=== PATIENT | male | born 1985 | race Caucasian/White ===

== ENCOUNTER 2021-04-09 01:56 | Inpatient (IN) | payer OTHER ==
[~2021-04-09] VITALS: Ht 175.3 cm; Wt 94.5 kg
[2021-04-09] VITALS (12 sets, daily range): BP systolic 90–120; BP diastolic 40–68
[2021-04-09] MEDS ORDERED: PIP/TAZO PER PHARMACY MC PRN (05:30)
[2021-04-09] MEDS: IV NORMAL SALINE 1000ML BAG 1,000 ML IV SCH ×2 (05:30→18:02)
[2021-04-09] MEDS ORDERED: fentaNYL PF VIAL 100 MCG/2 ML VIAL IVP PRN ×3 (05:30→08:30)
[2021-04-09] MEDS ORDERED: ONDANSETRON PF 4 MG/2 ML VIAL. IVP PRN (05:30)
[2021-04-09] MEDS: PIPERACILLIN/TAZOBACTAM 3.375 GM in IV NORMAL SALINE 50ML 50 ML IV SCH ×3 (06:00→18:02)
[2021-04-09] MEDS ORDERED: ACETAMINOPHEN 650 MG SUPP.RECT. PR PRN (08:15)
[2021-04-09] MEDS ORDERED: IV RINGERS,LACTATED 1000ML 1,000 ML IV SCH (08:30)
[2021-04-09] MEDS ORDERED: MORPHINE SULFATE 2 MG/ML VIAL. IVP PRN (08:30)
--- NOTE | 2021-04-09 10:48 | NUR ---
SW following. Discussed with RN, pt from home, room air, NPO. Pt having surgery today. RN advised no SW needs at this time. SW will continue to follow.
[2021-04-09] MEDS ORDERED: BUPIVACAINE-EPI 0.5%-1:200000 MPF 30 ML VIAL. ONE (12:35)
--- NOTE | 2021-04-09 13:05 | PDOC2 ---
CONSULT Date of Consult Date of Consult DATE: 04/09/21 TIME: 13:01 Reason for Consult Reason for Consult: appendicitis Referring Physician Referring Physician: Dr. Crow Identification/Chief Complaint Chief Complaint RLQ abd pain Source Source: Chart review, Patient History of Present Illness Reason for Visit: 36 yo M developed RLQ abd pain, beginning yesterday morning. No previous episodes. Associated N/V/F/C. Some improvement since admission. Pt seen in preop. Past Medical History Cardiovascular: No pertinent hx Past Surgical History Past Surgical History: No pertinent history Family History Family History: No Significant Social History No ALCOHOL: social Current Medications Current Medications Current Medications Sodium Chloride 1,000 ml @ 100 mls/hr Q10H IV Last administered on 04/09/21at 05:30; Start 04/09/21 at 05:30 Fentanyl Citrate (Fentanyl 2ml Vial) 25 mcg PRN Q3HRS PRN IVP SEVERE PAIN 7-10 Last administered on 04/09/21at 08:12; Start 04/09/21 at 05:30 Ondansetron HCl (Zofran) 4 mg PRN Q4HRS PRN IVP NAUSEA/VOMITING 1ST CHOICE Last administered on 04/09/21at 08:25; Start 04/09/21 at 05:30 Piperacillin Sod/ Tazobactam Sod (Zosyn Per Pharmacy) 1 each PRN DAILY PRN MC SEE COMMENTS; Start 04/09/21 at 05:30 Piperacillin Sod/ Tazobactam Sod 3.375 gm/Sodium Chloride 50 ml @ 100 mls/hr Q6HRS IV Last administered on 04/09/21at 11:55; Start 04/09/21 at 06:00 Acetaminophen (Tylenol Supp) 650 mg PRN Q4HRS PRN CA MILD PAIN / TEMP > 100.3'F Last administered on 04/09/21at 08:26; Start 04/09/21 at 08:15 Fentanyl Citrate (Fentanyl 2ml Vial) 25 mcg PRN Q5MIN PRN IVP MILD PAIN 1-3; Start 04/09/21 at 08:30; Stop 04/10/21 at 08:29 Fentanyl Citrate (Fentanyl 2ml Vial) 50 mcg PRN Q5MIN PRN IVP MODERATE PAIN 4- 6; Start 04/09/21 at 08:30; Stop 04/10/21 at 08:29 Morphine Sulfate (Morphine Sulfate) 1 mg PRN Q10MIN PRN IVP SEVERE PAIN 7-10; Start 04/09/21 at 08:30; Stop 04/10/21 at 08:29 Ringer's Solution 1,000 ml @ 30 mls/hr Q24H IV Last administered on 04/09/21at 12:37; Start 04/09/21 at 08:30; Stop 04/09/21 at 20:29 Hydromorphone HCl (Dilaudid) 0.5 mg PRN Q10MIN PRN IVP SEVERE PAIN 7-10, 2nd CHOICE; Start 04/09/21 at 08:30; Stop 04/10/21 at 08:29 Prochlorperazine Edisylate (Compazine) 5 mg PACU PRN PRN IVP NAUSEA, MRX1; Start 04/09/21 at 08:30; Stop 04/10/21 at 08:29 Bupivacaine HCl/ Epinephrine Bitart (Sensorcain-Epi 0.5%-1:[id number] Mpf) 30 ml STK-MED ONCE .ROUTE ; Start 04/09/21 at 12:35; Stop 04/09/21 at 12:35; Status DC Allergies Allergies: Coded Allergies: No Known Allergies (Verified Allergy, Unknown, 04/09/21) No Known Food Allergies (Verified Allergy, Unknown, 04/09/21) ROS General: YES: Chills Gastrointestinal: Yes Nausea, Yes Vomiting, Yes Abdominal Pain Physical Exam General: Alert, Oriented X3, Cooperative, No acute distress HEENT: Atraumatic Lungs: Normal air movement Abdomen: Soft, Other (TTP RLQ) Extremities: No clubbing, No cyanosis Skin: No rashes, No breakdown Neuro: Normal speech, Sensation intact Psych/Mental Status: Mental status NL, Mood NL Vitals VITALS Vital Signs Date Time Temp Pulse Resp B/P (MAP) Pulse Ox O2 Delivery O2 Flow Rate FiO2 04/09/21 12:33 100.5 60 15 112/55 95 Room Air 100.[address] [facility] labs with elevated WBC Images Images CT at [facility] c/w appendicitis Assessment/Plan Assessment/Plan appendicitis TO OR for laparoscopic versus open appendectomy. R/R/B/A d/w pt and pt's SO. Risks, including, but not limited to: bleeding, infection, damage to surrounding structures, risk of anesthesia, risk of open. They appear to understand, their questions are answered and they elect to proceed. Thanks for consult! MACIEJ GARCIA MD Apr 09, 2021 13:04
[2021-04-09] MEDS ORDERED: NEOSTIGMINE METHYLSULFATE 5 MG/5 ML SYRINGE. ONE (13:48)
[2021-04-09] MEDS ORDERED: GLYCOPYRROLATE 1 MG/5 ML VIAL. ONE (13:48)
[2021-04-09] MEDS ORDERED: SEVOFLURANE 61 TO 120 MINUTES. IH ONE (13:49)
--- NOTE | 2021-04-09 13:58 | PDOC4 ---
OPERATIVE NOTE Date: Date: Apr 09, 2021 Pre-Op Diagnosis: Appendicitis Post-Op Diagnosis: perforated appendicitis Procedure Performed: laparoscopic appendectomy Surgeon: Darren Garcia Anesthesia Type: GETA plus local Blood Loss: 50 Specimans Obtained: appendix Findings: perforated appendicitis with gangrenous tip, contained, no other pathology noted, wound class is dirty, 4. Complications: none Operative Note: After obtaining informed consent, patient was taken to OR, induced under GETA and prepped in the usual fashion. 5 mm ports placed LLQ and suprapubic, 12 port placed supraumbilical, all under laparoscopic guidance. Abdominal cavity was explored and noted as above. Appendix was bluntly dissected off abdominal wall, releasing feculent, purulent material. Defect created in mesoappendix. General load SAMANTHA taken across base of appendix. Vascular load taken across mesoappendix. Additional hemostasis obtained with clips on staple lines. Appendix placed in bag, delivered and sent to pathology. Copious irrigation with multiple bags of saline. No evidence of bleeding or other pathology noted. Ports removed without bleeding. Fascia repaired with 0 vicryl. Skin repaired with 4 0 monocryl. Dressing placed. Patient tolerated procedure well and sent to PACU in stable condition. All counts correct. MACIEJ GARCIA MD Apr 09, 2021 13:58
[2021-04-09] MEDS ORDERED: 0.9 % SODIUM CHLORIDE 10 ML DISP.SYRIN. IV PRN (14:00)
[2021-04-09] MEDS ORDERED: IV NORMAL SALINE 1000ML BAG 1,000 ML IV SCH (14:00)
[2021-04-09] MEDS: IV RINGERS,LACTATED 1000ML 1,000 ML IV SCH (14:00)
[2021-04-09] MEDS ORDERED: NALOXONE 0.4 MG/ML VIAL. IV PRN (14:00)
[2021-04-09] MEDS ORDERED: fentaNYL PF VIAL 100 MCG/2 ML VIAL ONE (14:02)
[2021-04-09] MEDS ORDERED: HYDROmorphone 2 MG/ML VIAL ONE (14:12)
[2021-04-09] MEDS ORDERED: PROCHLORPERAZINE 10 MG/2 ML VIAL. ONE (14:12)
[2021-04-09] MEDS: HYDROmorphone 2 MG/ML VIAL IVP PRN ×4 (14:15→14:46)
[2021-04-09] MEDS: PROCHLORPERAZINE 10 MG/2 ML VIAL. IVP PRN ×2 (14:15→14:32)
[2021-04-09] MEDS: HYDROcodone/APAP 5/325MG 1 TAB TABLET PO PRN (21:53)
[2021-04-10] MEDS: PIPERACILLIN/TAZOBACTAM 3.375 GM in IV NORMAL SALINE 50ML 50 ML IV SCH ×4 (00:30→18:03)
[2021-04-10] MEDS: IV NORMAL SALINE 1000ML BAG 1,000 ML IV SCH ×2 (00:54→14:01)
[2021-04-10 03:00] VITALS: BP 112/51
[2021-04-10] MEDS: HYDROcodone/APAP 5/325MG 1 TAB TABLET PO PRN ×3 (03:25→19:30)
[2021-04-10 05:47] LABS: BASO % 0 % (0-3); EOS % 0 % (0-3); HEMATOCRIT 37.2 % (39.0-53.0); HEMOGLOBIN 12.8 g/dL (13.0-17.5); LYMPH % 8 % (24-48); MEAN CORPUSCULAR HEMOGLOBIN 32 pg (25-35); MEAN CORPUSCULAR HGB CONC 34 g/dL (31-37); MEAN CORPUSCULAR VOLUME 92 fL (79-100); MONO # 1.1 x10^3/uL (0.0-1.1); MONO % 9 % (0-9); NEUT # 9.9 x10^3/uL (1.8-7.7); NEUT % 82 % (31-73); PLATELET COUNT 184 x10^3/uL (140-400); RED BLOOD COUNT 4.04 x10^6/uL (4.30-5.70); RED CELL DISTRIBUTION WIDTH 12.2 % (11.5-14.5); WHITE BLOOD COUNT 12.1 x10^3/uL (4.0-11.0)
[2021-04-10 06:24] LABS: CALCIUM 8.5 mg/dL (8.5-10.1); CREATININE 1.5 mg/dL (0.7-1.3); GFR 53.6; POTASSIUM 4.3 mmol/L (3.5-5.1)
[2021-04-10 07:00] VITALS: BP 113/59
--- NOTE | 2021-04-10 09:55 | PDOC ---
SURGICAL PROGRESS NOTE DATE: 04/10/21 TIME: 09:53 Subjective sore overall feels better no n/v urinating Vital Signs Vital Signs Date Time Temp Pulse Resp B/P (MAP) Pulse Ox O2 Delivery O2 Flow Rate FiO2 04/10/21 07:00 99.4 70 17 113/59 (77) 92 Nasal Cannula 2.0 99.4 I&O Intake and Output 04/10/21 07:00 Intake Total 1150 ml Output Total 75 ml Balance 1075 ml Intake Oral 0 ml IV Total 1150 ml Output Urine Total 25 ml Estimated Blood Loss 50 ml # Voids 3 General: Alert, Oriented X3, Cooperative Abdomen: Soft, Other (lap dressings dry) Labs Laboratory Tests Test 04/10/21 05:30 White Blood Count 12.1 x10^3/uL (4.0-11.0) Red Blood Count 4.04 x10^6/uL (4.30-5.70) Hemoglobin 12.8 g/dL (13.0-17.5) Hematocrit 37.2 % (39.0-53.0) Mean Corpuscular Volume 92 fL (79-100) Mean Corpuscular Hemoglobin 32 pg (25-35) Mean Corpuscular Hemoglobin Concent 34 g/dL (31-37) Red Cell Distribution Width 12.2 % (11.5-14.5) Platelet Count 184 x10^3/uL (140-400) Neutrophils (%) (Auto) 82 % (31-73) Lymphocytes (%) (Auto) 8 % (24-48) Monocytes (%) (Auto) 9 % (0-9) Eosinophils (%) (Auto) 0 % (0-3) Basophils (%) (Auto) 0 % (0-3) Neutrophils # (Auto) 9.9 x10^3/uL (1.8-7.7) Lymphocytes # (Auto) 1.0 x10^3/uL (1.0-4.8) Monocytes # (Auto) 1.1 x10^3/uL (0.0-1.1) Eosinophils # (Auto) 0.0 x10^3/uL (0.0-0.7) Basophils # (Auto) 0.0 x10^3/uL (0.0-0.2) Sodium Level 140 mmol/L (136-145) Potassium Level 4.3 mmol/L (3.5-5.1) Chloride Level 105 mmol/L (98-107) Carbon Dioxide Level 27 mmol/L (21-32) Anion Gap 8 (6-14) Blood Urea Nitrogen 12 mg/dL (8-26) Creatinine 1.5 mg/dL (0.7-1.3) Estimated GFR (Cockcroft-Gault) 53.6 Glucose Level 126 mg/dL (70-99) Calcium Level 8.5 mg/dL (8.5-10.1) Laboratory Tests Test 04/10/21 05:30 White Blood Count 12.1 x10^3/uL (4.0-11.0) Red Blood Count 4.04 x10^6/uL (4.30-5.70) Hemoglobin 12.8 g/dL (13.0-17.5) Hematocrit 37.2 % (39.0-53.0) Mean Corpuscular Volume 92 fL (79-100) Mean Corpuscular Hemoglobin 32 pg (25-35) Mean Corpuscular Hemoglobin Concent 34 g/dL (31-37) Red Cell Distribution Width 12.2 % (11.5-14.5) Platelet Count 184 x10^3/uL (140-400) Neutrophils (%) (Auto) 82 % (31-73) Lymphocytes (%) (Auto) 8 % (24-48) Monocytes (%) (Auto) 9 % (0-9) Eosinophils (%) (Auto) 0 % (0-3) Basophils (%) (Auto) 0 % (0-3) Neutrophils # (Auto) 9.9 x10^3/uL (1.8-7.7) Lymphocytes # (Auto) 1.0 x10^3/uL (1.0-4.8) Monocytes # (Auto) 1.1 x10^3/uL (0.0-1.1) Eosinophils # (Auto) 0.0 x10^3/uL (0.0-0.7) Basophils # (Auto) 0.0 x10^3/uL (0.0-0.2) Sodium Level 140 mmol/L (136-145) Potassium Level 4.3 mmol/L (3.5-5.1) Chloride Level 105 mmol/L (98-107) Carbon Dioxide Level 27 mmol/L (21-32) Anion Gap 8 (6-14) Blood Urea Nitrogen 12 mg/dL (8-26) Creatinine 1.5 mg/dL (0.7-1.3) Estimated GFR (Cockcroft-Gault) 53.6 Glucose Level 126 mg/dL (70-99) Calcium Level 8.5 mg/dL (8.5-10.1) Assessment/Plan s/p perf appy IV abx today, if continues to improve, probable home tomorrow on oral abx Justicifation of Admission Dx: Justifications for Admission: Justification of Admission Dx: Yes Comments: acute appendicitis CHANDLER WERNER [employer] Apr 10, 2021 09:55
[2021-04-10] MEDS: IV RINGERS,LACTATED 1000ML 1,000 ML IV SCH ×3 (10:00→20:00)
[2021-04-10 11:00] VITALS: BP 99/55
[2021-04-10 15:00] VITALS: BP 106/66
[2021-04-10] MEDS ORDERED: IV NORMAL SALINE 1000ML BAG 1,000 ML IV ONE (15:30)
--- NOTE | 2021-04-10 18:36 | PN ---
DATE: 04/10/2021 SUBJECTIVE: The patient is resting, slightly propped up in bed, in no apparent respiratory distress. He is awake, alert. On questioning him, he denied any complaint. OBJECTIVE: GENERAL: On examining him, he looked well and was clearly in no apparent respiratory distress. No pallor, jaundice, cyanosis, or thyromegaly. No jugular venous distention, no lower limb edema. VITAL SIGNS: Heart rate was 70, blood pressure is 113/59, temperature was 99.4, respiratory rate was 17 and oxygen saturation was 92% on 2 liters of oxygen. HEENT: Examination of the head, eyes, ears, nose and throat normocephalic, atraumatic. NECK: Supple. HEART: Showed normal first and second heart sounds, no gallop, murmur. CHEST: Clear to auscultation, no crepitation or rhonchi. ABDOMEN: Distended, soft with tenderness mostly in the right lower quadrant. There is no guarding or rigidity. No organomegaly. All hernial orifice intact. Bowel sounds normal. NEUROLOGIC: He was grossly intact. LABORATORY DATA: His lab work this morning showed a white cell count 12,100, hemoglobin 13, hematocrit 37, MCV 92 and platelet count of 184,000. Serum sodium 140, potassium 4.3, chloride 105, bicarbonate 27, anion gap of 8, BUN 12, creatinine 1.5. Estimated GFR was 53 mL per minute. His glucose 126, calcium was 8.5. ASSESSMENT: 1. Acute appendicitis with localized peritonitis. 2. Leukocytosis. 3. Acute kidney injury. PLAN: To continue with IV antibiotic in the form of piperacillin/tazobactam 3.375 grams IV every 6 hours. Continue with pain management. Continue with IV fluid. JOSUE DR: Taylor TID: [id number]
[2021-04-10 19:00] VITALS: BP 102/48
--- NOTE | 2021-04-10 19:35 | NUR ---
A bolus of NS was given per Dr. Crow ordered
[2021-04-10] MEDS: LACTOBACILLUS RHAMNOSUS GG 1 CAPSULE. PO SCH (20:42)
[2021-04-10] MEDS: ACETAMINOPHEN 325 MG TABLET. PO PRN (20:44)
[2021-04-10 23:00] VITALS: BP 107/60
[2021-04-11] MEDS: PIPERACILLIN/TAZOBACTAM 3.375 GM in IV NORMAL SALINE 50ML 50 ML IV SCH ×4 (00:48→17:35)
[2021-04-11] MEDS: IV NORMAL SALINE 1000ML BAG 1,000 ML IV SCH ×3 (00:48→16:28)
[2021-04-11] MEDS: IV RINGERS,LACTATED 1000ML 1,000 ML IV SCH ×2 (06:00→16:00)
[2021-04-11 07:00] VITALS: BP 93/56
[2021-04-11 07:45] LABS: BASO % 0 % (0-3); EOS % 0 % (0-3); HEMATOCRIT 36.7 % (39.0-53.0); HEMOGLOBIN 12.4 g/dL (13.0-17.5); LYMPH # 0.4 x10^3/uL (1.0-4.8); LYMPH % 4 % (24-48); MEAN CORPUSCULAR HEMOGLOBIN 31 pg (25-35); MEAN CORPUSCULAR HGB CONC 34 g/dL (31-37); MEAN CORPUSCULAR VOLUME 92 fL (79-100); MONO % 9 % (0-9); NEUT # 9.4 x10^3/uL (1.8-7.7); NEUT % 87 % (31-73); PLATELET COUNT 176 x10^3/uL (140-400); RED BLOOD COUNT 3.97 x10^6/uL (4.30-5.70); RED CELL DISTRIBUTION WIDTH 12.2 % (11.5-14.5); WHITE BLOOD COUNT 10.8 x10^3/uL (4.0-11.0)
[2021-04-11 08:21] LABS: ALBUMIN 2.9 g/dL (3.4-5.0); ALBUMIN/GLOBULIN RATIO 0.8 (1.0-1.7); CALCIUM 8.3 mg/dL (8.5-10.1); CREATININE 1.3 mg/dL (0.7-1.3); GFR 63.2; POTASSIUM 3.3 mmol/L (3.5-5.1); TOTAL BILIRUBIN 1.5 mg/dL (0.2-1.0); TOTAL PROTEIN 6.4 g/dL (6.4-8.2)
[2021-04-11] MEDS: LACTOBACILLUS RHAMNOSUS GG 1 CAPSULE. PO SCH ×2 (09:01→21:31)
[2021-04-11] MEDS: ONDANSETRON PF 4 MG/2 ML VIAL. IVP PRN ×2 (09:02→19:22)
--- NOTE | 2021-04-11 09:02 | PDOC ---
SURGICAL PROGRESS NOTE DATE: 04/11/21 TIME: 09:00 Subjective vomiting overnight, did have diarrhea hypoxia--sat 76 on room air yesterday pain managed Vital Signs Vital Signs Date Time Temp Pulse Resp B/P (MAP) Pulse Ox O2 Delivery O2 Flow Rate FiO2 04/11/21 07:00 97.5 85 17 93/56 (68) 100 Room Air 97.5 04/10/21 20:00 3.0 I&O Intake and Output 04/11/21 07:00 Intake Total 480 ml Balance 480 ml Intake Oral 480 ml # Voids 2 General: Alert, Oriented X3, Cooperative Abdomen: Soft, Other (ND, lap dressings dry, nontender ) Labs Laboratory Tests Test 04/10/21 05:30 04/10/21 19:59 04/11/21 05:35 White Blood Count 12.1 x10^3/uL (4.0-11.0) 10.8 x10^3/uL (4.0-11.0) Red Blood Count 4.04 x10^6/uL (4.30-5.70) 3.97 x10^6/uL (4.30-5.70) Hemoglobin 12.8 g/dL (13.0-17.5) 12.4 g/dL (13.0-17.5) Hematocrit 37.2 % (39.0-53.0) 36.7 % (39.0-53.0) Mean Corpuscular Volume 92 fL (79-100) 92 fL (79-100) Mean Corpuscular Hemoglobin 32 pg (25-35) 31 pg (25-35) Mean Corpuscular Hemoglobin Concent 34 g/dL (31-37) 34 g/dL (31-37) Red Cell Distribution Width 12.2 % (11.5-14.5) 12.2 % (11.5-14.5) Platelet Count 184 x10^3/uL (140-400) 176 x10^3/uL (140-400) Neutrophils (%) (Auto) 82 % (31-73) 87 % (31-73) Lymphocytes (%) (Auto) 8 % (24-48) 4 % (24-48) Monocytes (%) (Auto) 9 % (0-9) 9 % (0-9) Eosinophils (%) (Auto) 0 % (0-3) 0 % (0-3) Basophils (%) (Auto) 0 % (0-3) 0 % (0-3) Neutrophils # (Auto) 9.9 x10^3/uL (1.8-7.7) 9.4 x10^3/uL (1.8-7.7) Lymphocytes # (Auto) 1.0 x10^3/uL (1.0-4.8) 0.4 x10^3/uL (1.0-4.8) Monocytes # (Auto) 1.1 x10^3/uL (0.0-1.1) 1.0 x10^3/uL (0.0-1.1) Eosinophils # (Auto) 0.0 x10^3/uL (0.0-0.7) 0.0 x10^3/uL (0.0-0.7) Basophils # (Auto) 0.0 x10^3/uL (0.0-0.2) 0.0 x10^3/uL (0.0-0.2) Sodium Level 140 mmol/L (136-145) 141 mmol/L (136-145) Potassium Level 4.3 mmol/L (3.5-5.1) 3.3 mmol/L (3.5-5.1) Chloride Level 105 mmol/L (98-107) 105 mmol/L (98-107) Carbon Dioxide Level 27 mmol/L (21-32) 26 mmol/L (21-32) Anion Gap 8 (6-14) 10 (6-14) Blood Urea Nitrogen 12 mg/dL (8-26) 8 mg/dL (8-26) Creatinine 1.5 mg/dL (0.7-1.3) 1.3 mg/dL (0.7-1.3) Estimated GFR (Cockcroft-Gault) 53.6 63.2 Glucose Level 126 mg/dL (70-99) 111 mg/dL (70-99) Calcium Level 8.5 mg/dL (8.5-10.1) 8.3 mg/dL (8.5-10.1) Lactic Acid Level 1.0 mmol/L (0.4-2.0) BUN/Creatinine Ratio 6 (6-20) Total Bilirubin 1.5 mg/dL (0.2-1.0) Aspartate Amino Transf (AST/SGOT) 21 U/L (15-37) Alanine Aminotransferase (ALT/SGPT) 17 U/L (16-63) Alkaline Phosphatase 40 U/L (46-116) Total Protein 6.4 g/dL (6.4-8.2) Albumin 2.9 g/dL (3.4-5.0) Albumin/Globulin Ratio 0.8 (1.0-1.7) Laboratory Tests Test 04/10/21 19:59 04/11/21 05:35 Lactic Acid Level 1.0 mmol/L (0.4-2.0) White Blood Count 10.8 x10^3/uL (4.0-11.0) Red Blood Count 3.97 x10^6/uL (4.30-5.70) Hemoglobin 12.4 g/dL (13.0-17.5) Hematocrit 36.7 % (39.0-53.0) Mean Corpuscular Volume 92 fL (79-100) Mean Corpuscular Hemoglobin 31 pg (25-35) Mean Corpuscular Hemoglobin Concent 34 g/dL (31-37) Red Cell Distribution Width 12.2 % (11.5-14.5) Platelet Count 176 x10^3/uL (140-400) Neutrophils (%) (Auto) 87 % (31-73) Lymphocytes (%) (Auto) 4 % (24-48) Monocytes (%) (Auto) 9 % (0-9) Eosinophils (%) (Auto) 0 % (0-3) Basophils (%) (Auto) 0 % (0-3) Neutrophils # (Auto) 9.4 x10^3/uL (1.8-7.7) Lymphocytes # (Auto) 0.4 x10^3/uL (1.0-4.8) Monocytes # (Auto) 1.0 x10^3/uL (0.0-1.1) Eosinophils # (Auto) 0.0 x10^3/uL (0.0-0.7) Basophils # (Auto) 0.0 x10^3/uL (0.0-0.2) Sodium Level 141 mmol/L (136-145) Potassium Level 3.3 mmol/L (3.5-5.1) Chloride Level 105 mmol/L (98-107) Carbon Dioxide Level 26 mmol/L (21-32) Anion Gap 10 (6-14) Blood Urea Nitrogen 8 mg/dL (8-26) Creatinine 1.3 mg/dL (0.7-1.3) Estimated GFR (Cockcroft-Gault) 63.2 BUN/Creatinine Ratio 6 (6-20) Glucose Level 111 mg/dL (70-99) Calcium Level 8.3 mg/dL (8.5-10.1) Total Bilirubin 1.5 mg/dL (0.2-1.0) Aspartate Amino Transf (AST/SGOT) 21 U/L (15-37) Alanine Aminotransferase (ALT/SGPT) 17 U/L (16-63) Alkaline Phosphatase 40 U/L (46-116) Total Protein 6.4 g/dL (6.4-8.2) Albumin 2.9 g/dL (3.4-5.0) Albumin/Globulin Ratio 0.8 (1.0-1.7) Assessment/Plan t max 103 hypoxia increase IS use continue abx will check cxr repeat lab in AM-if continued fevers, increasing WBC will need repeat CT tomorrow Justicifation of Admission Dx: Justifications for Admission: Justification of Admission Dx: Yes CHANDLER WERNER [employer]ENDER Apr 11, 2021 09:02
--- NOTE | 2021-04-11 09:43 | NUR ---
SW following. Discussed with RN, pt from home, 3L PRN, GI soft. Pt had temps overnight. Oxygen will need to be determined prior to discharge. SW will continue to follow.
[2021-04-11 11:00] VITALS: BP 119/59
--- NOTE | 2021-04-11 13:29 | RAD ---
EXAM: Chest, 2 views. HISTORY: Hypoxia status post appendectomy. COMPARISON: None. FINDINGS: 2 views of chest are obtained. There is pneumoperitoneum due to reported recent appendectom y surgery. There is bilateral infrahilar linear atelectasis or infiltrate. There is no pleural effusi on or pneumothorax. The heart is normal in size. There are prominent air-filled loops of bowel within the abdomen. IMPRESSION: 1. Bilateral infrahilar linear atelectasis or infiltrate. 2. Pneumoperitoneum due to reported recent appendectomy surgery. 3. Prominent air-filled loops of bowel within the abdomen, likely due to a component of postoperativ e ileus. Electronically signed by: Anahi Hayden MD (04/11/2021 1:27 PM) [id number]
[2021-04-11] MEDS: ACETAMINOPHEN 325 MG TABLET. PO PRN ×2 (13:34→21:38)
[2021-04-11 15:00] VITALS: BP 110/66
[2021-04-11 19:00] VITALS: BP 122/60
[2021-04-11] MEDS ORDERED: CALCIUM CARBONATE 500 MG TAB.CHEW PO PRN ×2 (19:15→19:30)
[2021-04-11 23:00] VITALS: BP 120/62
[2021-04-12] MEDS: PIPERACILLIN/TAZOBACTAM 3.375 GM in IV NORMAL SALINE 50ML 50 ML IV SCH ×5 (00:30→12:50)
[2021-04-12] MEDS: IV RINGERS,LACTATED 1000ML 1,000 ML IV SCH ×3 (02:00→22:00)
[2021-04-12 03:00] VITALS: BP 122/62
[2021-04-12] MEDS: ONDANSETRON PF 4 MG/2 ML VIAL. IVP PRN ×3 (03:26→14:51)
[2021-04-12] MEDS: IV NORMAL SALINE 1000ML BAG 1,000 ML IV SCH (03:30)
--- NOTE | 2021-04-12 05:31 | NUR ---
zosyn was non-administered this morning d/t pt. having nausea and vomiting during infusion. MD is aware and gave the 'OK.'
[2021-04-12 06:10] LABS: CALCIUM 8.9 mg/dL (8.5-10.1); CREATININE 1.2 mg/dL (0.7-1.3); GFR 69.3; POTASSIUM 3.3 mmol/L (3.5-5.1)
[2021-04-12 07:00] VITALS: BP 111/65
[2021-04-12] MEDS: LACTOBACILLUS RHAMNOSUS GG 1 CAPSULE. PO SCH ×2 (08:41→21:18)
--- NOTE | 2021-04-12 09:09 | PATHOLOGY ---
[facility] Accession Number: [id number] . 01 Material submitted: . appendix - APPENDIX . 01 Clinical history: . ACUTE APPENDICITIS LAPAROSCOPIC APPENDECTOMY . 02 Diagnosis: Appendix, laparoscopic appendectomy: - Acute suppurative and necrotizing appendicitis, with focal distal perforation, serosal exudate and acute periappendicitis / mesoappendicitis. . ([facility]:chidi; 04/11/2021) [facility] 04/11/2021 1735 Local . 02 Comment: There is no evidence of malignancy. . ([facility]:william; 04/11/2021) . 02 Electronically signed: . Azar Ribera MD, Pathologist NPI- [id number] . 01 Gross description: . Fixative: Formalin Labeled: Appendix Appendix length: 7.5 cm Appendix diameter: 0.4-0.7 cm Mesoappendix: 1.0 cm, mottled to brown with adherent to-brown purulent material Proximal margin: Black inked Serosa: Mottled to-brown Cut surface: Mottled ot-brown Luminal diameter: 0.2-0.5 cm Perforation: Present, measuring 0.5 cm located 1.0 cm from the tip (green ink) Lesions/abnormalities: Sectioning reveals mottled to brown mucosal cut surfaces with firm to fibrous brown regions ranging from 0.1-0.2 cm. The appendix is entirely submitted in cassettes A1 thru A5, and A6 (adipose). A1 - Proximal margin (inked black) and distal tip, bisected A2 - distal tip with perforation, perpendicular sections (green ink) A3 thru A5-remaining cross-sections of the appendix A6- representation of the mesoappendix adipose (J; 04/10/2021) [facility] 04/10/2021 1949 Local . 02 Pathologist provided ICD-10: K35.80 . 02 CPT . 143391 Specimen Comment: A courtesy copy of this report has been sent to [phone] Specimen Comment: [id number] Specimen Comment: Report sent to / DR SALAZAR Performed at: [address] [facility], [place] [id number] MD Sanjiv Odonnell MD Phone: [phone] Performed at: [facility] [address] [place], [place] [id number] MD Azar Ribera MD Phone: [phone]
--- NOTE | 2021-04-12 09:11 | PDOC ---
SURGICAL PROGRESS NOTE DATE: 04/12/21 TIME: 09:06 Subjective nausea, emesis--thinks just when gets abx low appetite diarrhea fever last night--but said was when he was just getting out of shower Vital Signs Vital Signs Date Time Temp Pulse Resp B/P (MAP) Pulse Ox O2 Delivery O2 Flow Rate FiO2 04/12/21 08:00 Room Air 04/12/21 07:00 98.9 63 18 111/65 (80) 98 98.9 04/11/21 20:00 3.0 I&O Intake and Output 04/12/21 07:00 Intake Total 420 ml Balance 420 ml Intake Oral 420 ml # Voids 2 # Bowel Movements 1 General: Alert, Oriented X3, Cooperative Abdomen: Soft, No tenderness Labs Laboratory Tests Test 04/10/21 19:59 04/11/21 05:35 04/12/21 05:37 Lactic Acid Level 1.0 mmol/L (0.4-2.0) White Blood Count 10.8 x10^3/uL (4.0-11.0) Red Blood Count 3.97 x10^6/uL (4.30-5.70) Hemoglobin 12.4 g/dL (13.0-17.5) Hematocrit 36.7 % (39.0-53.0) Mean Corpuscular Volume 92 fL (79-100) Mean Corpuscular Hemoglobin 31 pg (25-35) Mean Corpuscular Hemoglobin Concent 34 g/dL (31-37) Red Cell Distribution Width 12.2 % (11.5-14.5) Platelet Count 176 x10^3/uL (140-400) Neutrophils (%) (Auto) 87 % (31-73) Lymphocytes (%) (Auto) 4 % (24-48) Monocytes (%) (Auto) 9 % (0-9) Eosinophils (%) (Auto) 0 % (0-3) Basophils (%) (Auto) 0 % (0-3) Neutrophils # (Auto) 9.4 x10^3/uL (1.8-7.7) Lymphocytes # (Auto) 0.4 x10^3/uL (1.0-4.8) Monocytes # (Auto) 1.0 x10^3/uL (0.0-1.1) Eosinophils # (Auto) 0.0 x10^3/uL (0.0-0.7) Basophils # (Auto) 0.0 x10^3/uL (0.0-0.2) Sodium Level 141 mmol/L (136-145) 142 mmol/L (136-145) Potassium Level 3.3 mmol/L (3.5-5.1) 3.3 mmol/L (3.5-5.1) Chloride Level 105 mmol/L (98-107) 106 mmol/L (98-107) Carbon Dioxide Level 26 mmol/L (21-32) 26 mmol/L (21-32) Anion Gap 10 (6-14) 10 (6-14) Blood Urea Nitrogen 8 mg/dL (8-26) 12 mg/dL (8-26) Creatinine 1.3 mg/dL (0.7-1.3) 1.2 mg/dL (0.7-1.3) Estimated GFR (Cockcroft-Gault) 63.2 69.3 BUN/Creatinine Ratio 6 (6-20) Glucose Level 111 mg/dL (70-99) 135 mg/dL (70-99) Calcium Level 8.3 mg/dL (8.5-10.1) 8.9 mg/dL (8.5-10.1) Total Bilirubin 1.5 mg/dL (0.2-1.0) Aspartate Amino Transf (AST/SGOT) 21 U/L (15-37) Alanine Aminotransferase (ALT/SGPT) 17 U/L (16-63) Alkaline Phosphatase 40 U/L (46-116) Total Protein 6.4 g/dL (6.4-8.2) Albumin 2.9 g/dL (3.4-5.0) Albumin/Globulin Ratio 0.8 (1.0-1.7) Laboratory Tests Test 04/12/21 05:37 Sodium Level 142 mmol/L (136-145) Potassium Level 3.3 mmol/L (3.5-5.1) Chloride Level 106 mmol/L (98-107) Carbon Dioxide Level 26 mmol/L (21-32) Anion Gap 10 (6-14) Blood Urea Nitrogen 12 mg/dL (8-26) Creatinine 1.2 mg/dL (0.7-1.3) Estimated GFR (Cockcroft-Gault) 69.3 Glucose Level 135 mg/dL (70-99) Calcium Level 8.9 mg/dL (8.5-10.1) Assessment/Plan cbc, cdiff pending may need to consider repeat CT continue abx will review with Dr Mobley Justicifation of Admission Dx: Justifications for Admission: Justification of Admission Dx: Yes CHANDLER WERNER APRN Apr 12, 2021 09:11
[2021-04-12] MEDS ORDERED: IOHEXOL 300 MG/ML 100ML VIAL. IV ONE (09:30)
[2021-04-12] MEDS ORDERED: CONTRAST GIVEN. MC PRN (09:45)
[2021-04-12] MEDS: POTASSIUM CL 40MEQ IN 0.9%NACL 1,000 ML IV SCH ×2 (10:04→20:20)
--- NOTE | 2021-04-12 10:07 | NUR ---
SW following. Discussed with RN, pt from home, room air, GI soft. Pt having a CT today due to still having nausea/ vomiting. RN advised no SW needs at this time. SW will continue to follow.
[2021-04-12 10:08] LABS: BASO % 0 % (0-3); EOS # 0.1 x10^3/uL (0.0-0.7); EOS % 1 % (0-3); HEMATOCRIT 35.3 % (39.0-53.0); HEMOGLOBIN 11.9 g/dL (13.0-17.5); LYMPH # 0.7 x10^3/uL (1.0-4.8); LYMPH % 6 % (24-48); MEAN CORPUSCULAR HEMOGLOBIN 31 pg (25-35); MEAN CORPUSCULAR HGB CONC 34 g/dL (31-37); MEAN CORPUSCULAR VOLUME 92 fL (79-100); MONO % 9 % (0-9); NEUT # 9.4 x10^3/uL (1.8-7.7); NEUT % 84 % (31-73); PLATELET COUNT 208 x10^3/uL (140-400); RED BLOOD COUNT 3.82 x10^6/uL (4.30-5.70); RED CELL DISTRIBUTION WIDTH 12.4 % (11.5-14.5); WHITE BLOOD COUNT 11.2 x10^3/uL (4.0-11.0)
[2021-04-12 11:00] VITALS: BP 116/64
--- NOTE | 2021-04-12 11:11 | RAD ---
INDICATION: Reason: persistent nausea / Spl. Instructions: 75ML OMNI 300 / History: . COMPARISON: CT from April 08, 2021 TECHNIQUE: Axial CT images obtained through the abdomen and pelvis with contrast. One or more of the following individualized dose reduction techniques were utilized for this examinat ion: 1. Automated exposure control; 2. Adjustment of the mA and/or kV according to patient size; 3 . Use of iterative reconstruction technique. FINDINGS: Mild consolidation at the lung bases with trace pleural effusions. Abdominal aorta is nonaneurysmal. Intraperitoneal free air is seen which could be from the patient's recent surgery. No intrahepatic bile duct dilation. The gallbladder is contracted. No peripancreatic fluid collection. Spleen unremarkable. No hydronephrosis. Free fluid is seen within the pelvis with peritoneal enhancement. Post appendectomy changes with surgical clips in the right lower quadrant. Dilated loops of small bowel are identified with distal decompression. These dilated loops of small b owel measure up to about 47 mm. Scattered prominent lymph nodes within the mesentery which could be reactive in nature. Some of the d istal small bowel loops appear decompressed. Degenerative changes of the spine. Urinary bladder is decompressed with prominence the wall. IMPRESSION: * Dilated loops of small bowel are identified with distal decompression. Causes such as a developing small bowel obstruction are within the differential as well as ileus. * Fluid is identified within the pelvis with some prominent peritoneal enhancement which can be seen with inflammatory changes to the peritoneal lining in the region. * Intraperitoneal free air is identified which could be from the patient's recent surgery. * There is some consolidation at the lung bases which can be seen with atelectasis or infiltrate. Electronically signed by: Alvaro Palomo MD (04/12/2021 11:09 AM) [id number]
--- NOTE | 2021-04-12 14:59 | HP ---
ADMIT DATE: 04/09/2021 SUBJECTIVE: The patient is a 36-year-old male patient who presented to the emergency room of [facility] with a day of right lower quadrant abdominal pain, rated out as 7/10 in severity, sharp in nature, decreased appetite, fever at home to about 101 before his Motrin, nausea, but no vomiting. Denied any recent travel. Other illnesses; chest pain, shortness of breath. He was extensively investigated in the emergency room. His lab work showed that he has leukocytosis. White cell count 14,600. His chemistry was unremarkable. Urinalysis was also unremarkable. Has had a CT scan of the abdomen and pelvis, which showed the patient has uncomplicated acute appendicitis. He was transferred to [facility], kept n.p.o., on IV antibiotic, IV pain medication and antiemetic and we did order blood culture also and consulted the general surgeon. PAST MEDICAL HISTORY: Unremarkable. PAST SURGICAL HISTORY: Unremarkable. His grandma has developed Lutein-induced hepatitis after general anesthesia. ALLERGIES: The patient has no known. MEDICATIONS: He is currently on no medication. By prescription, he took Motrin at home. FAMILY HISTORY: Has one younger sister healthy. Both parents are alive and healthy. SOCIAL HISTORY: He is , has no children. He uses smokeless tobacco. Used to drink alcohol occasionally. He does not use any drugs. PHYSICAL EXAMINATION: GENERAL: On examining him, he looked well and was clearly in no apparent respiratory distress. No pallor, jaundice, cyanosis, or thyromegaly. No jugular venous distention. No lower limb edema. VITAL SIGNS: His heart rate was 87, blood pressure is 127/56, temperature was 99.4, respiratory rate was 16 and oxygen saturation was 95% on room air. HEAD, EYES, EARS, NOSE, AND THROAT: Normocephalic, atraumatic. NECK: Supple. HEART: Normal first and second heart sounds. No gallop or murmur. CHEST: Clear to auscultation. No crepitation or rhonchi. ABDOMEN: Scaphoid with tenderness mostly in the right lower quadrant. No guarding or rigidity. No organomegaly. All hernial orifice intact. Bowel sounds normal. NEUROLOGIC: He was grossly intact. LABORATORY DATA: His lab work showed a white cell count was 14,600, hemoglobin 13.6, hematocrit 39, MCV 92 and platelet count 217,000 with 81% polymorphs, 8% lymphocytes and 11% monocytes. His chemistry showed a serum sodium 141, potassium 4.2, chloride 106, bicarbonate 26, anion gap of 9, BUN 9, creatinine 1.2. Estimated GFR was 69 mL per minute. His glucose 97, calcium was 9. Total bilirubin, AST, ALT, alkaline phosphatase were normal. Total protein 6.9, albumin 4. His lipase was 69. Urinalysis was essentially unremarkable and coronavirus by PCR was negative. ASSESSMENT AND PLAN: In summary, this is a 36-year-old male patient with a new onset of abdominal pain, nausea, but no vomiting, diagnosed with acute pancreatitis, transferred to [facility]. The patient was kept n.p.o., started on IV antibiotic in the form of Zosyn 4.5 grams IV every 6 hours, fentanyl 50 mcg IV every 3 hours, Zofran 4 mg IV every 4 hours. We have consulted the surgical team for definitive surgical treatment. JESSICA/DEEPAK DR: Taylor TID: [id number]
[2021-04-12 15:00] VITALS: BP 113/61
[2021-04-12] MEDS: HYDROcodone/APAP 5/325MG 1 TAB TABLET PO PRN ×2 (15:04→21:22)
[2021-04-12 19:30] VITALS: BP 109/67
[2021-04-12 23:04] VITALS: BP 113/52
--- NOTE | 2021-04-12 23:47 | CONS ---
DATE OF CONSULTATION: 04/12/2021 REFERRING PHYSICIAN: Dr. Crow. REASON FOR CONSULTATION: Need for antibiotics. The patient has nausea, vomiting and had appendicectomy. HISTORY OF PRESENT ILLNESS: This is a 36-year-old gentleman who came in with abdominal pain. The patient was found to have appendicitis. The patient underwent appendicectomy on 04/09/2021. The patient has been getting Zosyn, subsequently continues to have nausea, vomiting, also white count went down from 12,000 to 10,000 and now it has gone up to 11.2. The patient did have a fever of 101.9 yesterday, but he reports that he had just taken a hot shower and they took the temperature and ____ soon his temperature was down. The patient feels great. The patient feels like every time he gets antibiotics, he has nausea, vomiting, hence his intake is poor. Denies any headache, visual symptoms. Denies any abdominal pain. Denies any problems urinating or defecating. PAST MEDICAL HISTORY: Essentially unremarkable. SOCIAL HISTORY: Negative for smoking, alcohol or illicit drug use. ALLERGIES: No known drug allergies. CURRENT MEDICATIONS: Reviewed. The patient is on Zosyn. REVIEW OF SYSTEMS: As in HPI. All other systems reviewed and are negative. PHYSICAL EXAMINATION: GENERAL: Alert and oriented gentleman, not in distress. VITAL SIGNS: Stable, afebrile other than the one that I mentioned last night was 101.9. HEENT: Both pupils are round and reacting. No conjunctival lesion, no lesion in the mouth. NECK: Supple, no JVP, no lymphadenopathy. LUNGS: Clear. HEART: S1, S2 regular. ABDOMEN: Soft, nontender, no organomegaly. EXTREMITIES: No edema or cyanosis. SKIN: Unremarkable. NEUROLOGIC: The patient is alert, awake, and appropriate. No focal neurologic deficit. His abdominal incisions are unremarkable. LABORATORY DATA: White count is 11.2. BUN and creatinine is normal. Blood cultures negative. DIAGNOSTIC DATA: CT scan of the abdomen and pelvis just done is pending. IMPRESSION: 1. Perforated appendicitis status post laparoscopic appendicectomy. 2. Fever. 3. Leukocytosis. 4. Nausea, vomiting. RECOMMENDATION: Continue Zosyn for the time being. If CT is negative for abscess, the antibiotic can be switched over to the oral Augmentin for discharge. If there is abscess found, then he will need a drainage of the abscess. Thank you very much, Dr. Crow, for giving me the opportunity to participate in this patient's care. AKASH/SUB DR: Megan TID: [id number]
[2021-04-13] MEDS: ONDANSETRON PF 4 MG/2 ML VIAL. IVP PRN ×4 (00:13→17:32)
[2021-04-13] MEDS: PIPERACILLIN/TAZOBACTAM 3.375 GM in IV NORMAL SALINE 50ML 50 ML IV SCH ×4 (00:13→17:32)
[2021-04-13 03:14] VITALS: BP 104/58
[2021-04-13] MEDS: POTASSIUM CL 40MEQ IN 0.9%NACL 1,000 ML IV SCH ×2 (05:40→17:32)
[2021-04-13 07:00] VITALS: BP 108/53
[2021-04-13] MEDS: IV RINGERS,LACTATED 1000ML 1,000 ML IV SCH ×2 (08:00→18:00)
[2021-04-13] MEDS: LACTOBACILLUS RHAMNOSUS GG 1 CAPSULE. PO SCH ×2 (09:21→20:23)
[2021-04-13] MEDS: HYDROcodone/APAP 5/325MG 1 TAB TABLET PO PRN (09:25)
--- NOTE | 2021-04-13 09:44 | NUR ---
SW following. Discussed with RN, pt from home, room air, GI soft, C-diff negative. ID following. Anticipate pt will have another couple days of IV abx and then discharge with self care. RN advised no SW needs at this time. SW will continue to follow.
[2021-04-13 09:50] LABS: HEMATOCRIT 33.3 % (39.0-53.0); HEMOGLOBIN 11.3 g/dL (13.0-17.5); RED BLOOD COUNT 3.6 x10^6/uL (4.30-5.70); RED CELL DISTRIBUTION WIDTH 12.8 % (11.5-14.5); WHITE BLOOD COUNT 8.6 x10^3/uL (4.0-11.0)
[2021-04-13 10:06] LABS: ALBUMIN 2.6 g/dL (3.4-5.0); ALBUMIN/GLOBULIN RATIO 0.7 (1.0-1.7); CALCIUM 8.6 mg/dL (8.5-10.1); CREATININE 1.2 mg/dL (0.7-1.3); GFR 69.3; TOTAL BILIRUBIN 0.8 mg/dL (0.2-1.0); TOTAL PROTEIN 6.5 g/dL (6.4-8.2)
--- NOTE | 2021-04-13 10:13 | PDOC ---
Infectious Disease Note Subjective Subjective Patient is feeling little better ROS ROS No nausea vomiting diarrhea abdominal pain Vital Sign Vital Signs Vital Signs Date Time Temp Pulse Resp B/P (MAP) Pulse Ox O2 Delivery O2 Flow Rate FiO2 04/13/21 09:25 Room Air 04/13/21 07:00 99.1 71 16 108/53 (71) 91 99.1 Physical Exam PHYSICAL EXAM GENERAL: Alert and oriented gentleman, not in distress. VITAL SIGNS: Stable, afebrile other than the one that I mentioned last night was 101.9. HEENT: Both pupils are round and reacting. No conjunctival lesion, no lesion in the mouth. NECK: Supple, no JVP, no lymphadenopathy. LUNGS: Clear. HEART: S1, S2 regular. ABDOMEN: Soft, nontender, no organomegaly. EXTREMITIES: No edema or cyanosis. SKIN: Unremarkable. NEUROLOGIC: The patient is alert, awake, and appropriate. No focal neurologic deficit. His abdominal incisions are unremarkable. Labs Lab Laboratory Tests Test 04/13/21 09:25 White Blood Count 8.6 x10^3/uL (4.0-11.0) Red Blood Count 3.60 x10^6/uL (4.30-5.70) Hemoglobin 11.3 g/dL (13.0-17.5) Hematocrit 33.3 % (39.0-53.0) Mean Corpuscular Volume 92 fL (79-100) Mean Corpuscular Hemoglobin 32 pg (25-35) Mean Corpuscular Hemoglobin Concent 34 g/dL (31-37) Red Cell Distribution Width 12.8 % (11.5-14.5) Platelet Count 246 x10^3/uL (140-400) Sodium Level 145 mmol/L (136-145) Potassium Level 4.0 mmol/L (3.5-5.1) Chloride Level 107 mmol/L (98-107) Carbon Dioxide Level 30 mmol/L (21-32) Anion Gap 8 (6-14) Blood Urea Nitrogen 9 mg/dL (8-26) Creatinine 1.2 mg/dL (0.7-1.3) Estimated GFR (Cockcroft-Gault) 69.3 BUN/Creatinine Ratio 8 (6-20) Glucose Level 124 mg/dL (70-99) Calcium Level 8.6 mg/dL (8.5-10.1) Total Bilirubin 0.8 mg/dL (0.2-1.0) Aspartate Amino Transf (AST/SGOT) 14 U/L (15-37) Alanine Aminotransferase (ALT/SGPT) 20 U/L (16-63) Alkaline Phosphatase 39 U/L (46-116) Total Protein 6.5 g/dL (6.4-8.2) Albumin 2.6 g/dL (3.4-5.0) Albumin/Globulin Ratio 0.7 (1.0-1.7) Micro Microbiology 04/10/21 Blood Culture - Preliminary, Resulted NO GROWTH AFTER 2 DAYS Objective Assessment IMPRESSION: 1. Perforated appendicitis status post laparoscopic appendicectomy. 2. Fever. 3. Leukocytosis. 4. Nausea, vomiting. Plan Plan of Care Continue supportive care continue antibiotics to be able to change to p.o. once allowed p.o. CT negative for abscess positive for ileus TANIA JI MD Apr 13, 2021 10:13
[2021-04-13 11:00] VITALS: BP 103/62
--- NOTE | 2021-04-13 11:01 | PDOC ---
SURGICAL PROGRESS NOTE DATE: 04/13/21 TIME: 10:59 Subjective Pt feels better, susy clears, no N/V today, passing loose stools Vital Signs Vital Signs Date Time Temp Pulse Resp B/P (MAP) Pulse Ox O2 Delivery O2 Flow Rate FiO2 04/13/21 09:25 Room Air 04/13/21 07:00 99.1 71 16 108/53 (71) 91 99.1 I&O Intake and Output 04/13/21 07:00 Intake Total 1830 ml Balance 1830 ml Intake Oral 780 ml IV Total 1050 ml # Voids 4 # Bowel Movements 1 General: Alert, Oriented X3, Cooperative, No acute distress Abdomen: Soft, Other (mild TTP) Labs Laboratory Tests Test 04/11/21 21:45 04/12/21 05:37 04/13/21 09:25 Clostridium difficile Toxin (PCR) Negative (NEGATIVE) White Blood Count 11.2 x10^3/uL (4.0-11.0) 8.6 x10^3/uL (4.0-11.0) Red Blood Count 3.82 x10^6/uL (4.30-5.70) 3.60 x10^6/uL (4.30-5.70) Hemoglobin 11.9 g/dL (13.0-17.5) 11.3 g/dL (13.0-17.5) Hematocrit 35.3 % (39.0-53.0) 33.3 % (39.0-53.0) Mean Corpuscular Volume 92 fL (79-100) 92 fL (79-100) Mean Corpuscular Hemoglobin 31 pg (25-35) 32 pg (25-35) Mean Corpuscular Hemoglobin Concent 34 g/dL (31-37) 34 g/dL (31-37) Red Cell Distribution Width 12.4 % (11.5-14.5) 12.8 % (11.5-14.5) Platelet Count 208 x10^3/uL (140-400) 246 x10^3/uL (140-400) Neutrophils (%) (Auto) 84 % (31-73) Lymphocytes (%) (Auto) 6 % (24-48) Monocytes (%) (Auto) 9 % (0-9) Eosinophils (%) (Auto) 1 % (0-3) Basophils (%) (Auto) 0 % (0-3) Neutrophils # (Auto) 9.4 x10^3/uL (1.8-7.7) Lymphocytes # (Auto) 0.7 x10^3/uL (1.0-4.8) Monocytes # (Auto) 1.0 x10^3/uL (0.0-1.1) Eosinophils # (Auto) 0.1 x10^3/uL (0.0-0.7) Basophils # (Auto) 0.0 x10^3/uL (0.0-0.2) Sodium Level 142 mmol/L (136-145) 145 mmol/L (136-145) Potassium Level 3.3 mmol/L (3.5-5.1) 4.0 mmol/L (3.5-5.1) Chloride Level 106 mmol/L (98-107) 107 mmol/L (98-107) Carbon Dioxide Level 26 mmol/L (21-32) 30 mmol/L (21-32) Anion Gap 10 (6-14) 8 (6-14) Blood Urea Nitrogen 12 mg/dL (8-26) 9 mg/dL (8-26) Creatinine 1.2 mg/dL (0.7-1.3) 1.2 mg/dL (0.7-1.3) Estimated GFR (Cockcroft-Gault) 69.3 69.3 Glucose Level 135 mg/dL (70-99) 124 mg/dL (70-99) Calcium Level 8.9 mg/dL (8.5-10.1) 8.6 mg/dL (8.5-10.1) BUN/Creatinine Ratio 8 (6-20) Total Bilirubin 0.8 mg/dL (0.2-1.0) Aspartate Amino Transf (AST/SGOT) 14 U/L (15-37) Alanine Aminotransferase (ALT/SGPT) 20 U/L (16-63) Alkaline Phosphatase 39 U/L (46-116) Total Protein 6.5 g/dL (6.4-8.2) Albumin 2.6 g/dL (3.4-5.0) Albumin/Globulin Ratio 0.7 (1.0-1.7) Laboratory Tests Test 04/13/21 09:25 White Blood Count 8.6 x10^3/uL (4.0-11.0) Red Blood Count 3.60 x10^6/uL (4.30-5.70) Hemoglobin 11.3 g/dL (13.0-17.5) Hematocrit 33.3 % (39.0-53.0) Mean Corpuscular Volume 92 fL (79-100) Mean Corpuscular Hemoglobin 32 pg (25-35) Mean Corpuscular Hemoglobin Concent 34 g/dL (31-37) Red Cell Distribution Width 12.8 % (11.5-14.5) Platelet Count 246 x10^3/uL (140-400) Sodium Level 145 mmol/L (136-145) Potassium Level 4.0 mmol/L (3.5-5.1) Chloride Level 107 mmol/L (98-107) Carbon Dioxide Level 30 mmol/L (21-32) Anion Gap 8 (6-14) Blood Urea Nitrogen 9 mg/dL (8-26) Creatinine 1.2 mg/dL (0.7-1.3) Estimated GFR (Cockcroft-Gault) 69.3 BUN/Creatinine Ratio 8 (6-20) Glucose Level 124 mg/dL (70-99) Calcium Level 8.6 mg/dL (8.5-10.1) Total Bilirubin 0.8 mg/dL (0.2-1.0) Aspartate Amino Transf (AST/SGOT) 14 U/L (15-37) Alanine Aminotransferase (ALT/SGPT) 20 U/L (16-63) Alkaline Phosphatase 39 U/L (46-116) Total Protein 6.5 g/dL (6.4-8.2) Albumin 2.6 g/dL (3.4-5.0) Albumin/Globulin Ratio 0.7 (1.0-1.7) Assessment/Plan s/p lap appendectomy will ADAT cont abx and supportive care Justicifation of Admission Dx: Justifications for Admission: Justification of Admission Dx: Yes MACIEJ GARCIA MD Apr 13, 2021 11:01
[2021-04-13 15:00] VITALS: BP 122/66
[2021-04-13 19:00] VITALS: BP 99/51
[2021-04-13] MEDS: ACETAMINOPHEN 325 MG TABLET. PO PRN (20:24)
[2021-04-13 23:00] VITALS: BP 102/59
[2021-04-14] MEDS: PIPERACILLIN/TAZOBACTAM 3.375 GM in IV NORMAL SALINE 50ML 50 ML IV SCH ×4 (00:06→17:56)
[2021-04-14] MEDS: ONDANSETRON PF 4 MG/2 ML VIAL. IVP PRN ×4 (00:09→23:59)
--- NOTE | 2021-04-14 01:40 | PN ---
DATE: 04/13/2021 SUBJECTIVE: The patient is resting, slightly propped up in bed, in no apparent respiratory distress. He denied any nausea or vomiting. He tolerated his Zosyn, one was given with Zofran according to him. He has passed gas, but no bowel movement. PHYSICAL EXAMINATION: GENERAL: When I examined him, he looked well and was clearly in no apparent respiratory distress. VITAL SIGNS: Heart rate was 71, blood pressure is 108/53, temperature was 99.1, respiratory rate was 16 and oxygen saturation was 91% on room air. ABDOMEN: Distended, soft, nontender. There is no guarding or rigidity. No organomegaly. All hernial orifice intact. Bowel sounds sluggish. LABORATORY DATA: His intake and output are incompletely recorded. As of yesterday, his serum sodium was 142, potassium 3.3, chloride 106, bicarbonate 26, anion gap of 10, BUN 12, creatinine 1.2. Estimated GFR was 69 mL per minute. His glucose was 135, calcium was 8.9. His blood cultures are so far negative and his stool for C. diff negative. A CT scan of the abdomen and pelvis done yesterday showed that the patient has dilated loops of small bowel that are identified with distal decompression, causes such as developing small-bowel obstruction are within the differential as well as ileus. Fluid identified within the pelvis with some prominent peritoneal enhancement, which can be seen with inflammatory changes ____ lining in the region. He has also intraperitoneal free air identified, which could be from the patient's recent surgery. There is some consolidation of the lung bases, which can be seen with atelectasis or infiltrate. PLAN: Obviously to continue with IV antibiotic. Continue with IV fluid. As he has hypokalemia, I switched him to normal saline with 40 mEq of potassium chloride. We will arrange for him to have his labs drawn again this morning. Check his BMP and a CBC and await evaluation by the surgical team. He seemed to be able to tolerate liquid diet without any problem. JESSICA/MARIA TERESA/MESHA DR: Taylor TID: [id number]
[2021-04-14 03:00] VITALS: BP 103/56
[2021-04-14] MEDS: POTASSIUM CL 40MEQ IN 0.9%NACL 1,000 ML IV SCH ×2 (03:13→12:00)
[2021-04-14] MEDS: IV RINGERS,LACTATED 1000ML 1,000 ML IV SCH ×2 (04:00→14:00)
[2021-04-14] MEDS: ACETAMINOPHEN 325 MG TABLET. PO PRN (05:11)
[2021-04-14 07:00] VITALS: BP 122/66
--- NOTE | 2021-04-14 08:36 | PDOC ---
SURGICAL PROGRESS NOTE DATE: 04/14/21 TIME: 08:34 Subjective Patient states he is feeling better sleeping better less pain. Passing flatus no bowel movement no nausea Vital Signs Vital Signs Date Time Temp Pulse Resp B/P (MAP) Pulse Ox O2 Delivery O2 Flow Rate FiO2 04/14/21 07:00 98.3 71 20 122/66 (84) 93 Room Air 98.3 I&O Intake and Output 04/14/21 07:00 Intake Total 1025 ml Balance 1025 ml IV Total 1025 ml # Voids 4 # Bowel Movements 1 PATIENT HAS A KUMAR: No General: Alert, Oriented X3, Cooperative, mild distress Abdomen: Normal bowel sounds, Soft, Other (Mild incisional tenderness wounds clean dry and intact) Labs Laboratory Tests Test 04/13/21 09:25 White Blood Count 8.6 x10^3/uL (4.0-11.0) Red Blood Count 3.60 x10^6/uL (4.30-5.70) Hemoglobin 11.3 g/dL (13.0-17.5) Hematocrit 33.3 % (39.0-53.0) Mean Corpuscular Volume 92 fL (79-100) Mean Corpuscular Hemoglobin 32 pg (25-35) Mean Corpuscular Hemoglobin Concent 34 g/dL (31-37) Red Cell Distribution Width 12.8 % (11.5-14.5) Platelet Count 246 x10^3/uL (140-400) Sodium Level 145 mmol/L (136-145) Potassium Level 4.0 mmol/L (3.5-5.1) Chloride Level 107 mmol/L (98-107) Carbon Dioxide Level 30 mmol/L (21-32) Anion Gap 8 (6-14) Blood Urea Nitrogen 9 mg/dL (8-26) Creatinine 1.2 mg/dL (0.7-1.3) Estimated GFR (Cockcroft-Gault) 69.3 BUN/Creatinine Ratio 8 (6-20) Glucose Level 124 mg/dL (70-99) Calcium Level 8.6 mg/dL (8.5-10.1) Total Bilirubin 0.8 mg/dL (0.2-1.0) Aspartate Amino Transf (AST/SGOT) 14 U/L (15-37) Alanine Aminotransferase (ALT/SGPT) 20 U/L (16-63) Alkaline Phosphatase 39 U/L (46-116) Total Protein 6.5 g/dL (6.4-8.2) Albumin 2.6 g/dL (3.4-5.0) Albumin/Globulin Ratio 0.7 (1.0-1.7) Laboratory Tests Test 04/13/21 09:25 White Blood Count 8.6 x10^3/uL (4.0-11.0) Red Blood Count 3.60 x10^6/uL (4.30-5.70) Hemoglobin 11.3 g/dL (13.0-17.5) Hematocrit 33.3 % (39.0-53.0) Mean Corpuscular Volume 92 fL (79-100) Mean Corpuscular Hemoglobin 32 pg (25-35) Mean Corpuscular Hemoglobin Concent 34 g/dL (31-37) Red Cell Distribution Width 12.8 % (11.5-14.5) Platelet Count 246 x10^3/uL (140-400) Sodium Level 145 mmol/L (136-145) Potassium Level 4.0 mmol/L (3.5-5.1) Chloride Level 107 mmol/L (98-107) Carbon Dioxide Level 30 mmol/L (21-32) Anion Gap 8 (6-14) Blood Urea Nitrogen 9 mg/dL (8-26) Creatinine 1.2 mg/dL (0.7-1.3) Estimated GFR (Cockcroft-Gault) 69.3 BUN/Creatinine Ratio 8 (6-20) Glucose Level 124 mg/dL (70-99) Calcium Level 8.6 mg/dL (8.5-10.1) Total Bilirubin 0.8 mg/dL (0.2-1.0) Aspartate Amino Transf (AST/SGOT) 14 U/L (15-37) Alanine Aminotransferase (ALT/SGPT) 20 U/L (16-63) Alkaline Phosphatase 39 U/L (46-116) Total Protein 6.5 g/dL (6.4-8.2) Albumin 2.6 g/dL (3.4-5.0) Albumin/Globulin Ratio 0.7 (1.0-1.7) Assessment/Plan That is post appendectomy. Tolerating full liquids no nausea vomiting. Afebrile normal white count Advance diet if tolerated could be discharged home on oral antibiotics Justicifation of Admission Dx: Justifications for Admission: Justification of Admission Dx: Yes DAVID BOOTHE MD Apr 14, 2021 08:36
[2021-04-14] MEDS: LACTOBACILLUS RHAMNOSUS GG 1 CAPSULE. PO SCH ×2 (10:53→19:45)
[2021-04-14 11:00] VITALS: BP 113/66
[2021-04-14 15:00] VITALS: BP 110/53
[2021-04-14 19:00] VITALS: BP 124/69
--- NOTE | 2021-04-14 22:44 | PN ---
DATE: 04/14/2021 SUBJECTIVE: The patient is resting, slightly propped up in bed in no apparent distress. Denied any nausea or vomiting. He continued to have loose bowel movement. He is tolerating his clear liquid diet. OBJECTIVE: GENERAL: When I examined him, he looked well and was clearly in no apparent respiratory distress. No pallor, jaundice, cyanosis, thyromegaly, jugular distention or edema. VITAL SIGNS: Heart rate was 71, blood pressure was 122/66, temperature 98.3, respiratory rate 20, and oxygen saturation was 93%. ABDOMEN: Soft, nontender. No guarding or rigidity. No organomegaly. Bowel sounds are normal. His intake is 1830, no output was recorded. LABORATORY DATA: As of yesterday, his white cell count was 8600, hemoglobin 11, hematocrit 33, MCV 92 and platelet count 246,000. His chemistry showed a serum sodium 145, potassium 4, chloride 107, bicarbonate 30, anion gap of 8, BUN 9, and creatinine 1.2. Estimated GFR was 69 mL per minute. His glucose 124, calcium was 8.6. Total bilirubin, AST, ALT, and alkaline phosphatase were normal. Total protein 6.5 and albumin was 2.6. Stool for C. diff was negative and his blood cultures so far showed no growth after 3 days. ASSESSMENT AND PLAN: 1. Acute appendicitis, status post laparoscopic appendectomy. 2. Postoperative paralytic ileus versus small bowel obstruction that is currently resolving. The patient is tolerating his diet. He has loose bowel movement. As per surgical team, he needs to advance his diet and if he is tolerating it without any problem, he can be discharged. He has a prescription for Augmentin and pain medication. ROSIE DR: Taylor TID: [id number]
[2021-04-14 23:00] VITALS: BP 122/71
[2021-04-15] MEDS: POTASSIUM CL 40MEQ IN 0.9%NACL 1,000 ML IV SCH ×2 (01:09→08:00)
[2021-04-15 03:00] VITALS: BP 148/67
[2021-04-15] MEDS: ONDANSETRON PF 4 MG/2 ML VIAL. IVP PRN (06:03)
[2021-04-15] MEDS: PIPERACILLIN/TAZOBACTAM 3.375 GM in IV NORMAL SALINE 50ML 50 ML IV SCH ×2 (06:06)
[2021-04-15 07:00] VITALS: BP 111/57
[2021-04-15] MEDS ORDERED: HYDR-2761 PO (08:54)
[2021-04-15] MEDS ORDERED: AMOX1TAB61 PO (08:54)
--- NOTE | 2021-04-15 09:03 | PDOC ---
SURGICAL PROGRESS NOTE DATE: 04/15/21 TIME: 09:02 Subjective Patient states he is feeling good having bowel movements tolerating diet Vital Signs Vital Signs Date Time Temp Pulse Resp B/P (MAP) Pulse Ox O2 Delivery O2 Flow Rate FiO2 04/15/21 07:00 98.3 58 18 111/57 (75) 94 Room Air 98.3 I&O Intake and Output 04/15/21 07:00 Intake Total 120 ml Balance 120 ml Intake Oral 120 ml # Voids 5 PATIENT HAS A KUMAR: No General: Alert, Oriented X3, Cooperative, No acute distress Abdomen: Normal bowel sounds, Soft, Other (Mild incisional tenderness wounds clean dry and intact) Labs Laboratory Tests Test 04/13/21 09:25 White Blood Count 8.6 x10^3/uL (4.0-11.0) Red Blood Count 3.60 x10^6/uL (4.30-5.70) Hemoglobin 11.3 g/dL (13.0-17.5) Hematocrit 33.3 % (39.0-53.0) Mean Corpuscular Volume 92 fL (79-100) Mean Corpuscular Hemoglobin 32 pg (25-35) Mean Corpuscular Hemoglobin Concent 34 g/dL (31-37) Red Cell Distribution Width 12.8 % (11.5-14.5) Platelet Count 246 x10^3/uL (140-400) Sodium Level 145 mmol/L (136-145) Potassium Level 4.0 mmol/L (3.5-5.1) Chloride Level 107 mmol/L (98-107) Carbon Dioxide Level 30 mmol/L (21-32) Anion Gap 8 (6-14) Blood Urea Nitrogen 9 mg/dL (8-26) Creatinine 1.2 mg/dL (0.7-1.3) Estimated GFR (Cockcroft-Gault) 69.3 BUN/Creatinine Ratio 8 (6-20) Glucose Level 124 mg/dL (70-99) Calcium Level 8.6 mg/dL (8.5-10.1) Total Bilirubin 0.8 mg/dL (0.2-1.0) Aspartate Amino Transf (AST/SGOT) 14 U/L (15-37) Alanine Aminotransferase (ALT/SGPT) 20 U/L (16-63) Alkaline Phosphatase 39 U/L (46-116) Total Protein 6.5 g/dL (6.4-8.2) Albumin 2.6 g/dL (3.4-5.0) Albumin/Globulin Ratio 0.7 (1.0-1.7) Assessment/Plan Status post laparoscopic appendectomy patient doing well cleared for discharge Justicifation of Admission Dx: Justifications for Admission: Justification of Admission Dx: Yes DAVID BOOTHE MD Apr 15, 2021 09:03
[2021-04-15] MEDS: IV RINGERS,LACTATED 1000ML 1,000 ML IV SCH ×2 (10:00)
[2021-04-15] MEDS: LACTOBACILLUS RHAMNOSUS GG 1 CAPSULE. PO SCH (10:22)
[2021-04-15 11:00] VITALS: BP 106/67
== END 2021-04-15 10:58 | disposition home or self-care (01) | DRG 853 ==
LOC: 4 NORTH 01:56
PROVIDERS: ADMIT Internal Medicine; ATTEND Internal Medicine
PROC: 0DTJ4ZZ Resection of Appendix, Percutaneous Endoscopic Approach (ICD-10-PCS; principal; 2021-04-09 12:00)
DX: A41.9 Sepsis, unspecified organism (principal); K35.32 Acute appendicitis with perforation, localized peritonitis, and gangrene, without abscess; K85.90 Acute pancreatitis without necrosis or infection, unspecified; N17.9 Acute kidney failure, unspecified; R09.02 Hypoxemia; Z72.0 Tobacco use; Z20.822 Contact with and (suspected) exposure to COVID-19; Z79.899 Other long term (current) drug therapy; E87.6 Hypokalemia
CPT/HCPCS: 36415; 71046; 74177; 80048; 80053; 83605; 85025; 85027; 87040; 87493; 88304; A4314; A4930; A6219; J0780; J1170; J2405; J2543; J2710; J3010; J3480; J3490; J7030; J7120; Q9967; G0378